=== PATIENT | male | born 2000 | race American Indian/Alaskan Native ===

== ENCOUNTER 2024-03-21 18:55 | Emergency (ER) | payer OTHER ==
[~2024-03-21] VITALS: Ht 167.6 cm; Wt 68.2 kg
[2024-03-22 00:09] VITALS: TEMP 98.6
[2024-03-22 00:36] VITALS: BP 119/86; PULSE 93; RESP 16; O2SAT 95
[2024-03-22] MEDS: ibuprofen tablet 400 MG TABLET PO ONE (00:48)
[2024-03-22] MEDS: acetaminophen 325mg tablet PO ONE (00:48)
== END 2024-03-22 00:51 | disposition home or self-care (01) ==
LOC: ER 18:56
DX: R51.9 Headache, unspecified (principal); M54.89 Other dorsalgia; M25.562 Pain in left knee; I49.9 Cardiac arrhythmia, unspecified; V89.2XXA Person injured in unspecified motor-vehicle accident, traffic, initial encounter; Y93.89 Activity, other specified; Y92.89 Other specified places as the place of occurrence of the external cause; Y99.8 Other external cause status
CPT/HCPCS: 70450; 71250; 72125; 73610; 74176; 93005; 99284; L0172